=== PATIENT | male | born 1955 | race Caucasian/White ===

== ENCOUNTER 2016-09-03 06:16 | Inpatient (IN) | payer BC ==
[2016-08-08 14:13] VITALS: BMI 37.0
--- NOTE | 2016-08-08 14:46 | PAT Medication Instructions ---
Service Date Aug 08, 2016. Current Home Medication List Amlodipine (Norvasc), 2.5 MG PO QAM Ascorbic Acid (Vitamin C), 500 MG PO QAM Atorvastatin (Lipitor), 20 MG PO QAM B-Complex Vitamins (Vitamin B Complex), 1 TAB PO QAM Levothyroxine Sodium (Synthroid), 175 MCG PO QAM Losartan Potassium & Hydrochlo (Losartan Potassium/Hydroc), 1 TAB PO QAM Omeprazole (Prilosec), 20 MG PO QAM Medication Instructions For Your Scheduled Surgery - Hold the following medications the morning of surgery: Losartan Potassium & Hydrochlo (Losartan Potassium/Hydroc), 1 TAB PO QAM B-Complex Vitamins (Vitamin B Complex), 1 TAB PO QAM Ascorbic Acid (Vitamin C), 500 MG PO QAM - Take the following medications the morning of surgery with a sip of water: Omeprazole (Prilosec), 20 MG PO QAM Levothyroxine Sodium (Synthroid), 175 MCG PO QAM Atorvastatin (Lipitor), 20 MG PO QAM Amlodipine (Norvasc), 2.5 MG PO QAM If you have any questions please call us at [phone] (Vivienne Velazco PA-C) or [phone] or [phone]
--- NOTE | 2016-08-08 15:39 | DIAGNOSTIC IMAGING REPORT ---
TWO VIEW CHEST CLINICAL HISTORY: Preoperative examination. FINDINGS: PA and lateral chest radiographs are compared to study dated 03/19/2013 and correlated with chest CT dated 12/27/2010. The patient is status post midline sternotomy. The heart is enlarged. The pulmonary vasculature is noncongested. There is chronic elevation of the left hemidiaphragm with left basilar atelectasis. The lungs are otherwise clear. No pleural effusion or pneumothorax is seen. The bony thorax appears intact. Mild degenerative changes noted throughout the thoracic spine. IMPRESSION: Chronic changes as above with no active disease in the chest. Electronically signed by: Rk Gil M.D. 08/08/2016 3:38 PM Dictated Date/Time: 08/08/2016 3:36 PM
[2016-08-08 16:07] LABS: BASO % 0.1 %; BASO ABS # 0.01 K/uL (0-0.2); COMPLETE YES; EOS % 3.2 %; HEMATOCRIT 47.6 % (42-52); IG% 0.4 %; LYMPH % 27.1 %; LYMPH ABS # 1.87 K/uL (1.2-3.4); MEAN CELL VOLUME 91.4 fL (80-100); MEAN CORPUSCULAR HEMOGLOBIN 31.9 pg (25-34); MEAN CORPUSCULAR HGB CONC 34.9 g/dl (32-36); MEAN PLATELET VOLUME 10.5 fL (7.4-10.4); MONO % 10.6 %; NEUT % 58.6 %; PLATELET COUNT 182 K/uL (130-400); RED BLOOD COUNT 5.21 M/uL (4.7-6.1); WHITE BLOOD COUNT 6.91 K/uL (4.8-10.8)
[2016-08-08 16:10] LABS: URINE APPEARANCE CLEAR (CLEAR); URINE BILIRUBIN NEG (NEG); URINE COLOR YELLOW; URINE NITRITE NEG (NEG); URINE SPECIFIC GRAVITY 1.021 (1.000-1.030); UROBILINOGEN NEG (NEG)
[2016-08-08 16:15] LABS: PARTIAL THROMBOPLASTIN RATIO 1.1; PROTHROMBIN TIME (PATIENT) 10.8 SECONDS (9.0-12.0)
[2016-08-08 16:21] LABS: MANUAL MICROSCOPIC REQUIRED? NO; REVIEW REQ? NO
[2016-08-08 16:33] LABS: BUN/CREATININE RATIO 12.6 (10-20); CALCIUM 9.2 mg/dl (8.5-10.1); CREATININE 1.1 mg/dl (0.60-1.40); POTASSIUM 4.2 mmol/L (3.5-5.1)
[2016-08-11 16:57] LABS: BUN/CREATININE RATIO 15.5 (10-20); CALCIUM 8.8 mg/dl (8.5-10.1); CREATININE 1.1 mg/dl (0.60-1.40); POTASSIUM 3.7 mmol/L (3.5-5.1)
--- NOTE | 2016-08-19 10:10 | HISTORY & PHYSICAL EXAMINATION ---
DATE OF ADMISSION: 09/03/2016 CHIEF COMPLAINT: Left knee pain. HISTORY OF PRESENT ILLNESS: This 61-year-old white male presents to the office with complaints of left knee pain that he has had for more than 6 months. The patient has tried activity modification, viscosupplementation, and physical therapy as well as oral anti-inflammatories without lasting relief. Left knee pain is worse with weightbearing and ambulation. It is affecting his ADLs. He elects to proceed with left total knee arthroplasty in hopes of alleviating his pain. No numbness or tingling. He denies any recent swelling. No night pain. No catching or locking. X-rays have been obtained. PAST MEDICAL HISTORY: Significant for hypertension, GERD, osteoarthritis, obesity, history of melanoma, history of thyroid cancer, elevated cholesterol, and basal cell skin cancer. PREVIOUS SURGERIES: Punch biopsies, endoscopy, Mohs' surgery, tonsillectomy, shoulder surgery, left leg vein stripping, thyroidectomy, melanoma, basal cell cancer excision, thyroidectomy, and a paralyzed diaphragm. ALLERGIES: NKDA. CURRENT MEDICATIONS: Flurbiprofen 1 tablet p.o. b.i.d., HCTZ/losartan 25 mg/100 mg p.o. daily, Lipitor 20 mg daily, Prilosec 20 mg daily, and Synthroid 150 mcg daily. FAMILY HISTORY: Significant for cancer, otherwise unremarkable. REVIEW OF SYSTEMS: Significant for above stated conditions, otherwise unremarkable. PHYSICAL EXAMINATION: GENERAL: Well-developed and well-nourished middle aged white male, in no acute distress. Sitting on a bed. Alert and oriented. SKIN: Warm and dry with good turgor. No rashes. No ecchymosis or erythema. No intraarticular effusion. HEENT: Normocephalic and atraumatic. Eyes: PERRLA. EOMI. Ears: TMs intact bilaterally with good light reflexes. No erythema or bulging. Nares: Patent bilaterally without turbinate enlargement. Oropharynx: Without erythema or exudate. No lesions noted. Uvula midline. Oral mucosa moist. Good dentition. HEART: RRR. No MGR. LUNGS: Clear to auscultation bilaterally. No crackles, rhonchi or wheezing. Good air movement. ABDOMEN: Bowel sounds present x4. Soft and nontender. No organomegaly. No masses. MUSCULOSKELETAL: Left knee has no effusion. Slightly valgus alignment. Full terminal extension. Flexion to around 110 degrees. Strength is 5/5 with good quad tone. No defect in the patellar tendon or quadriceps tendon. He has focal discomfort with palpation over the medial and lateral joint lines. Ambulatory with a minimally antalgic gait. NEUROLOGIC: Cranial nerves II through XII are intact. Gross sensation is intact across the lower extremities by soft touch. Peripheral pulses are 2+. DATA: Radiographic images previously obtained show end-stage DJD of the left knee. He has periarticular osteophytes, subchondral sclerosis, and joint space narrowing. IMPRESSION: Left knee end-stage degenerative joint disease. PLAN: Informed written consent was obtained to proceed with left total knee arthroplasty. Postoperative prescriptions for Percocet and Coumadin will be provided at discharge from the hospital. Anticipate discharge to home with 2 weeks of home health services and then outpatient PT. Prescription for a walker has been provided. Preoperative lab work, EKG, and chest x-ray have been ordered. Medical clearance has been requested from Dr. Eden.
[~2016-09-03] VITALS: Ht 170.2 cm; Wt 107.4 kg
[2016-09-03] VITALS (7 sets, daily range): BP systolic 115–141; BP diastolic 71–93; PULSE 65–83; TEMP 36.6–37.5; O2SAT 93–97; Ht 170.2 cm; Wt 107.4 kg
[~2016-09-03 06:16] MED LIST: AMLO2.5T PO; ASCO1CAP3 PO; ATOR-22 PO; B-COTAB18 PO; CEFAZOLIN 2000 MG/60 ML D5W 60 ML IV SCH; LACTATED RINGER'S 1000ML 1,000 ML IV SCH; LACTATED RINGER'S 1000ML 500 ML IV ONE; LEVO175T PO; LOSA100T26 PO; PRLSR20 PO; ROPIVACAINE 5MG/ML 30 ML 150 MG, BUPIVACAINE/EPINEPHR 0.5% MPF 30 ML, KETOROLAC TROMETH... INFIL SCH
--- NOTE | 2016-09-03 06:24 | History & Physical Bridge Note ---
H&P Re-Evaluation Bridge Note: I have examined the patient, reviewed the History & Physical and in the interval since the performance of the History & Physical I have noted the following changes of clinical significance: No changes noted
[2016-09-03] MEDS ORDERED: BUPIVACAINE 0.5 % 5 MG/1 ML PF 10ML VIAL ONE (07:18)
[2016-09-03] MEDS ORDERED: BUPIVACAINE 0.25% 30 ML VIAL ONE (07:19)
[2016-09-03] MEDS ORDERED: MIDAZOLAM HCL 1 MG/ML 2ML VIAL ONE ×3 (07:44→09:23)
[2016-09-03] MEDS ORDERED: MEPERIDINE HCL 25 MG/ML CARP IV PRN ×2 (07:45→11:15)
[2016-09-03] MEDS ORDERED: ONDANSETRON INJ 2 MG/ML 2 ML VIAL IV PRN ×3 (07:45→11:15)
[2016-09-03] MEDS ORDERED: LABETALOL HCL IV 5 MG/ML 20ML IV PRN ×2 (07:45→11:15)
[2016-09-03] MEDS ORDERED: EpHEDrine SULFATE INJ 50 MG/ML AMP IV PRN ×2 (07:45→11:15)
[2016-09-03] MEDS ORDERED: HYDROmorphone INJ 1 MG/ML SYR IV PRN ×2 (07:45→11:15)
[2016-09-03] MEDS ORDERED: ATROPINE SULFATE 0.1 MG/ML 5ML SYR IV PRN ×2 (07:45→11:15)
[2016-09-03] MEDS: TRANEXAMIC ACID INJ 1,000 MG in SODIUM CHLORIDE 0.9% 100ML 100 ML IV SCH ×2 (08:32→12:59)
[2016-09-03] MEDS ORDERED: POVIDONE-IODINE OP SOLN 30 ML BTL ONE (08:48)
[2016-09-03] MEDS ORDERED: ORTHO JOINT ANESTHETIC ONE (08:48)
[2016-09-03] MEDS ORDERED: FENTANYL CITRATE INJ 50 MCG/1 ML 2 ML VIAL ONE (09:39)
--- NOTE | 2016-09-03 10:40 | [facility] Post Operative Brief Note ---
Immediate Operative Summary Operative Date Sep 03, 2016. Pre-Operative Diagnosis Left Knee End-Stage Degenerative Joint Disease Post-Operative Diagnosis Left Knee End-Stage Degenerative Joint Disease Procedure(s) Performed Left Total Knee Arthroplasty, Cemented Surgeon Dr. Stinson [employer] Supervisor Surgeon(s) David Alvarez PA-C Estimated Blood Loss 25 ml Findings severe djd with valgus Fluids (cc crystalloids) 1800cc Specimens A.) Left Knee Bone and Tissue Fragments Drains none Anesthesia spinal/lma Complication(s) None Disposition Recovery Room / PACU
[2016-09-03] MEDS ORDERED: TAMSULOSIN HCL 0.4 MG CAP PO PRN (11:00)
[2016-09-03] MEDS ORDERED: DiphenhydrAMINE HCL 50 MG/ML VIAL IV PRN (11:00)
[2016-09-03] MEDS ORDERED: METOCLOPRAMIDE HCL INJ 5 MG/ML 2 ML VIAL IV PRN (11:00)
[2016-09-03] MEDS ORDERED: ACETAMINOPHEN IV 100 ML IV PRN (11:00)
[2016-09-03] MEDS ORDERED: MoRPHine SULFATE 4 MG/ML 1 ML CARP\\VIAL IV PRN (11:00)
[2016-09-03] MEDS ORDERED: ACETAMINOPHEN 325 MG TAB PO PRN (11:00)
[2016-09-03] MEDS ORDERED: MAGNESIUM HYDROXIDE SUSP 30 ML UDC PO PRN (11:00)
[2016-09-03] MEDS ORDERED: ALUMINUM/MAGNESIUM/SIMETH (MAALOX MAX) 30 ML UDC PO PRN (11:00)
[2016-09-03] MEDS ORDERED: BISACODYL 10 MG SUPP PR PRN (11:00)
[2016-09-03] MEDS ORDERED: OXYCODONE HCL IR 5 MG TAB (IMMEDIATE RELEASE) PO PRN (11:00)
--- NOTE | 2016-09-03 11:00 | OPERATIVE REPORT ---
DATE OF OPERATION: 09/03/2016 PREOPERATIVE DIAGNOSIS: Severe osteoarthritis with valgus deformity, left knee. POSTOPERATIVE DIAGNOSIS: Same. OPERATION PERFORMED: Cemented left total knee replacement. SURGEON: Dr. Stinson. TELEVISION NEWS PRODUCER: Jhonathan Alvarez PA-C. No resident or fellow available. PERIOPERATIVE SITUATION: Medically cleared male with intractable valgus deformity pain, has failed conservative management and wants to proceed with total knee replacement. OPERATION AND FINDINGS: OPERATION: The patient appropriately identified, site verified, consent verified, 2 grams of Ancef confirmed as being given and 1 gram of TXA confirmed as being given. The left lower extremity was prepped and draped in usual fashion. Tourniquet was inflated to 300 mmHg after exsanguination of limb with a rubber Esmarch bandage for a total of about 65 minutes. Midline approach was utilized. Soft tissue releases performed. He had severe deformity, this was all corrected. A synovectomy completed, osteophytes resected. Distal femur entered with a drill bit. Cruciates resected. Femur resected 12 then adjusted to 14 later on. The tibia resected 2 and then adjusted to 4 later on. The extension gap was then excellent. The alignment was excellent. The femur was sized between a 5 and 4, was measured 5 cut 4. There was no notching. The flexion gap was slightly tight laterally. The capsular release performed and it was excellent. The anterior and posterior condylar and chamfer cuts then made and the box cut made and the size 4 femur fit well. The tibia was broached and reamed to a size 4 and a 12.5 insert gave excellent mid range stability and did not interfere with flexion that was utilized. The area was then irrigated with Betadine Pulsavac and then injected with Orthomix. The patella was then sized to a 41, appropriate resection made leaving 14-15 mm of the patella so seating hole was made and the trial tracked well. All trial elements were then removed. The wound irrigated with Betadine Pulsavac, final Orthomix injected. Permanent implants then cemented into position. After 12 minutes, the tourniquet deflated. After 14 minutes the knee flexed. All remaining minor cement removal occurred. The wound irrigated with betadine Pulsavac and permanent liner seated. The knee reduced and closed with #1 Ethibond, #1 Vicryl, 2-0 Vicryl and stainless steel clips. Appropriate dressing applied. The patient transferred to recovery room in satisfactory condition having tolerated the procedure well. Estimated blood loss was 25 mL. Crystalloid 1800 mL. DVT prophylaxis with Coumadin. SUMMARY OF IMPLANTS: Size 4 posterior cruciate substituting femur, size 4 rotating platform tray, oval domed 3 pegged patella size 41, tibial insert posterior cruciate substituting size 4 12.5. I attest to the content of the Intraoperative Record and any orders documented therein. Any exceptio ns are noted below.
[2016-09-03] MEDS ORDERED: PROPOFOL IV EMULSION 10 MG/ML 20 ML VIAL IV ONE (11:05)
[2016-09-03] MEDS ORDERED: LIDOCAINE HCL 2% 2 ML VIAL (20MG/ML) ONE (11:05)
[2016-09-03] MEDS: FENTANYL CITRATE INJ 50 MCG/1 ML 2 ML VIAL IV PRN ×4 (11:05→11:45)
[2016-09-03] MEDS ORDERED: ONDANSETRON INJ 2 MG/ML 2 ML VIAL ONE (11:06)
[2016-09-03] MEDS ORDERED: DEXAMETHASONE SOD INJ 4 MG/ML VIAL ONE (11:06)
--- NOTE | 2016-09-03 11:10 | OPERATIVE REPORT ---
DATE OF OPERATION: 09/03/2016 PREOPERATIVE DIAGNOSIS: Left knee end-stage degenerative joint disease. POSTOPERATIVE DIAGNOSIS: Left knee same. PROCEDURE: Left knee total knee arthroplasty using DePuy implants. SURGEON: Dr. Stinson. PROMOTION PRODUCER: Jhonathan Alvarez PA-C. HISTORY OF PRESENT ILLNESS: This 61-year-old white male presented to the office with complaints of left knee pain. He had tried conservative care measures including cortisone injections, viscosupplementation, oral pain medication, and activity modification without lasting relief. He elected to proceed with surgical intervention after being educated about potential risks and outcomes. Preoperative x-rays were obtained. OPERATION: The patient was administered spinal anesthetic and then taken to the operating room where he was given general anesthetic. He was prepped and draped in the usual sterile fashion. Please see Dr. Stinson's operative report for specifics of the procedure. I was present for the entire case from initial patient positioning through final wound closure. Assistance was provided in tissue retraction, hemostasis, trial implant placement, final implant placement, and final wound closure. The patient was taken to the recovery room in satisfactory condition. I attest to the content of the Intraoperative Record and any orders documented therein. Any exceptio ns are noted below.
[2016-09-03] MEDS ORDERED: FENTANYL CITRATE INJ 50 MCG/1 ML 2 ML VIAL IV PRN (11:15)
--- NOTE | 2016-09-03 11:32 | DIAGNOSTIC IMAGING REPORT ---
LEFT KNEE 1 OR 2 VIEWS ROUTINE CLINICAL HISTORY: Postop examination COMPARISON: None. DISCUSSION: There are postsurgical changes of a total left knee arthroplasty. The femoral and tibial components appear well seated. Overlying skin thanh are evident. There is air within soft tissues consistent with recent surgery. IMPRESSION: Postsurgical changes of a total left knee arthroplasty Electronically signed by: Jimmie Kelly M.D. 09/03/2016 11:31 AM Dictated Date/Time: 09/03/2016 11:30 AM
--- NOTE | 2016-09-03 11:59 | Anesthesiology Progress Note ---
Anesthesia Post Op Note Date & Time Sep 03, 2016 at 11:58 Vital Signs Pain Intensity: 1 Vital Signs Past 12 Hours Date Time Temp Pulse Resp B/P Pulse Ox O2 Delivery O2 Flow Rate FiO2 09/03/16 11:55 36.5 75 18 120/82 96 Nasal Cannula 3 09/03/16 11:40 36.5 74 18 135/89 96 Nasal Cannula 3 09/03/16 11:30 36.5 69 16 128/85 99 Nasal Cannula 3 09/03/16 11:20 72 16 141/78 99 Nasal Cannula 3 09/03/16 11:10 73 16 147/95 99 Nasal Cannula 3 09/03/16 11:00 78 16 144/90 96 Nasal Cannula 3 09/03/16 10:50 36 92 16 146/96 100 Nasal Cannula 3 09/03/16 06:47 37.2 69 18 141/93 Room Air Notes Mental Status: alert / awake / arousable, participated in evaluation Pt Amnestic to Procedure: Yes Nausea / Vomiting: adequately controlled Pain: adequately controlled Airway Patency, RR, SpO2: stable & adequate BP & HR: stable & adequate Hydration State: stable & adequate Neuraxial Anesthesia: was administered, sensory block is resolving Anesthetic Complications: no major complications apparent
[2016-09-03] MEDS ORDERED: MIDAZOLAM HCL 1 MG/ML 2ML VIAL IV ONE (13:03)
[2016-09-03] MEDS ORDERED: D5W AND 1/2NSS + 20MEQ KCL 1,000 ML IV SCH (14:00)
[2016-09-03] MEDS: FERROUS GLUCONATE 324 MG TAB PO SCH ×2 (14:28→18:11)
--- NOTE | 2016-09-03 14:32 | PROGRESS NOTE ---
DATE: 09/03/2016 HISTORY OF PRESENT ILLNESS: Postop check status post left total knee replacement. At this point in time the patient is without any headache, nausea, vomiting, chills, chest pain, shortness of breath, fever. He notes that his pain is well managed. He can do a straight leg raise. His wiggle his toes. PHYSICAL EXAMINATION: Vital signs are stable. He is afebrile. Wound dressing clean, dry and intact. X-RAYS: AP and lateral of his knee reveals well fixed, well aligned knee replacement. ASSESSMENT AND PLAN: Doing well. Once he eats, we will have him mobilized and get to a chair and walk today. Have vp digital marketing social media and crm see today for discharge tomorrow. Coumadin this evening. DELPHINE
[2016-09-03] MEDS ORDERED: WARFARIN SOD 5 MG TAB PO SCH (16:00)
[2016-09-03] MEDS ORDERED: OXYC-57 PO (16:58)
[2016-09-03] MEDS ORDERED: WARF2TAB PO (16:58)
[2016-09-03] MEDS ORDERED: TRANEXAMIC ACID INJ 1,000 MG in SODIUM CHLORIDE 0.9% 100ML 100 ML IV SCH (17:00)
[2016-09-03] MEDS: CEFAZOLIN IV 2,000 MG in DEXTROSE 5% 50ML 50 ML IV SCH (17:28)
[2016-09-03] MEDS: KETOROLAC TROMETHAMINE 30 MG/ML VIAL IV. SCH ×2 (18:12→23:31)
[2016-09-03] MEDS: DOCUSATE SODIUM 100 MG CAP PO SCH (21:23)
[2016-09-04] MEDS: CEFAZOLIN IV 2,000 MG in DEXTROSE 5% 50ML 50 ML IV SCH (00:59)
[2016-09-04 03:52] VITALS: BP 119/75; PULSE 88; TEMP 37.5; O2SAT 94
[2016-09-04] MEDS: KETOROLAC TROMETHAMINE 30 MG/ML VIAL IV. SCH ×2 (05:40→12:26)
[2016-09-04] MEDS ORDERED: LEVOTHYROXINE 175 MCG TAB PO SCH (06:00)
[2016-09-04] MEDS ORDERED: CHLORPROMAZINE HCL 10 MG TAB PO PRN (07:00)
[2016-09-04 07:21] LABS: HEMATOCRIT 35.4 % (42-52); MEAN CELL VOLUME 88.7 fL (80-100); MEAN CORPUSCULAR HEMOGLOBIN 32.1 pg (25-34); MEAN CORPUSCULAR HGB CONC 36.2 g/dl (32-36); MEAN PLATELET VOLUME 10.3 fL (7.4-10.4); PLATELET COUNT 184 K/uL (130-400); RED BLOOD COUNT 3.99 M/uL (4.7-6.1); WHITE BLOOD COUNT 11.61 K/uL (4.8-10.8)
--- NOTE | 2016-09-04 07:22 | PROGRESS NOTE ---
DATE: 09/04/2016 Postop check status post total knee replacement. Is doing well, has no major issues. Notes some minor hiccups. Denies chest pain, shortness of breath, fever, chills, nausea, vomiting. Voiding well. Vital signs are stable. He is afebrile. The a.m. lab work is pending. The femoral sciatic nerve is excellent. Calf nontender. Wound dressing clean, dry and intact. ASSESSMENT: Overall, doing well. Continue with care pathway. P.rGavinnGavin Plata for hiccups. Will follow up in the office. Home health to be arranged. Discharge today.
--- NOTE | 2016-09-04 07:24 | DISCHARGE SUMMARY ---
CHIEF COMPLAINT: Left knee pain. HISTORY OF PRESENT ILLNESS: 61-year-old male admitted for elective left total knee replacement. Hospital course has been uneventful. Had some minor hiccups; will try some Thorazine. PAST MEDICAL HISTORY: Remarkable for hypertension, GERD, osteoarthritis, obesity, history of melanoma, history of thyroid cancer, elevated cholesterol, basal cell skin cancer. PAST SURGICAL HISTORY: Include punch biopsies, endoscopies, Mohs surgery, tonsillectomy, shoulder surgery, left leg vein stripping, thyroidectomy, melanoma basal cell cancer, thyroidectomy and paralyzed diaphragm. ALLERGIES: None. CURRENT MEDICATIONS: NSAID, hydrochlorothiazide, losartan, Lipitor, Prilosec, Synthroid. He was discontinue the NSAID or flurbiprofen and will add p.r.n. pain medication and Coumadin to keep INR 1.8-2.2. FAMILY HISTORY: Cancer. REVIEW OF SYSTEMS: Noncontributory. ASSESSMENT: Hospital course has been uneventful at this point in time. He is moving well. He is voiding and eating well. Will potentially discharge after PT, OT today. Follow up in 2 weeks for staple removal. Home health.
[2016-09-04] MEDS ORDERED: DEXAMETHASONE INJ 10 MG in SYRINGE 0 ML IV SCH (07:30)
[2016-09-04 07:39] LABS: INR 1.1 (0.9-1.1); PROTHROMBIN TIME (PATIENT) 11.9 SECONDS (9.0-12.0)
[2016-09-04 07:57] LABS: BUN/CREATININE RATIO 18.5 (10-20); CALCIUM 8.5 mg/dl (8.5-10.1); CREATININE 1.2 mg/dl (0.60-1.40); POTASSIUM 3.9 mmol/L (3.5-5.1)
[2016-09-04 07:58] VITALS: BP 133/78; PULSE 87; TEMP 37.6; O2SAT 92
--- NOTE | 2016-09-04 08:34 | Anesthesiology Progress Note ---
Anesthesia Post Op Note Date & Time Sep 04, 2016 at 08:33 Vital Signs Pain Intensity: 0.0 Vital Signs Past 12 Hours Date Time Temp Pulse Resp B/P Pulse Ox O2 Delivery O2 Flow Rate FiO2 09/04/16 07:58 37.6 87 17 133/78 92 Room Air 09/04/16 07:05 Room Air 09/04/16 03:52 37.5 88 18 119/75 94 Room Air 09/03/16 23:45 37.5 83 18 115/71 93 Room Air 09/03/16 23:34 Room Air Notes Mental Status: alert / awake / arousable, participated in evaluation Pt Amnestic to Procedure: Yes Nausea / Vomiting: adequately controlled Pain: adequately controlled Airway Patency, RR, SpO2: stable & adequate BP & HR: stable & adequate Hydration State: stable & adequate Neuraxial Anesthesia: sensory block resolved Anesthetic Complications: no major complications apparent
--- NOTE | 2016-09-04 08:45 | Discharge Instructions ---
Discharge Instructions Date of Service Sep 03, 2016. Admission Reason for Admission: Left Knee Osteoarthritis Discharge Discharge Diagnosis / Problem: left knee s/p total knee replacement Discharge Goals Goal(s): Decrease discomfort, Improve function, Increase independence Activity Recommendations Activity Limitations: as noted below Lifting Limitations: gradually increase as tolerated Exercise/Sports Limitations: until after follow-up appointment Shower/Bathe: keep incision dry Driving or Machine Use: No driving until cleared by Dr. Stinson Weightbearing Status: Left weightbearing (as tolerated) . Instructions / Follow-Up Instructions / Follow-Up New Medicine: * You will likely be taking one or more of these medications: 1. Percocet - Take, as directed, when you need it, every four to six hours to control your pain. 2. Coumadin - Thins your blood to lessen the chance of forming a blood clot. The dose of this is different for each person and is based on your blood tests that are done twice a week. * The most common side effects of pain medicine and iron are nausea and constipation. If nausea or constipation is too much of a problem or if you have any questions about your new medicines or doses, call [facility] at . We will try to help you manage these issues. VERY IMPORTANT TO READ AND REVIEW" Blood Clots and Blood Thinning Medicine: * You are given Coumadin during the immediate post-operative period to lessen the risk of blood clots forming in your legs and/or lungs. Coumadin is usually given for six weeks after surgery. * The prescription is for 2 mg tablets. At discharge, you should understand your dose and take it all at the same time every day, preferably after dinner. * You need to get your blood checked 1 - 2 times per week for six weeks or as directed. * If your dose needs to change, we will call you. Do not take your medication on the day of the blood test until we call you. Pain: * The immediate post-operative period after knee replacement surgery is often quite painful. * You are given a prescription for pain medicine. You should take it, as directed, when you need it, especially before physical therapy and before going to bed. Pain that interferes with sleep is very common and can last several months. * You will likely need pain medicine for the first four to six weeks. It will not stop all of the pain. The pain will lessen and as you feel better, you may change to milder pain medicine such as Tylenol. * The most common side effects of pain medicine are nausea and constipation, so don't take more than you need. Physical Therapy: * You will have physical therapy two or three times each week for four to six weeks after your surgery in order to regain your knee range of motion and to retrain your knee to work properly. * It is just as important to make sure you are getting your knee perfectly straight as it is to regain your knee bend. * Taking a pain pill an hour before therapy can help you have a more productive and comfortable therapy session if needed. Home Exercise: * You were shown a series of exercises (heel props, heel slides, etc.) in the hospital. Do these exercises three to four times each day including the exercises you were shown in physical therapy. Walking: * Get up and walk several times each day. For the first four weeks, try not to stand or walk for more than one hour at a time. If you do stand or walk for more than one hour, you will not hurt anything, but your knee and leg will likely swell. * As you feel comfortable, you may change from the walker or crutches to a cane and then to independent walking. SELF CARE INSTRUCTIONS AFTER TOTAL KNEE REPLACEMENT A. You may need to continue a physical therapy program after discharge from the hospital. There are several options available to you. Your doctor will assist you in selecting the best one for you. 1. An out-patient facility 2 to 3 times a week for therapy or home therapy. 2. Continue working on all exercises taught to you in the hospital. Your goals should be to increase bending of your knee to 90 degrees and beyond and to fully straighten your knee. B. You may progress at your own pace from walking with a walker or crutches to a cane; then to no assistive devices. C. Make walking a part of your daily routine. Be up as much as comfortable with rest periods throughout the day. Rest with leg elevation is very important. Use the ice wrap frequently for the first 3-4 weeks. D. There are no restrictions on activities. You may ride in a car, shop, participate in solar development engineer and all social activities. E. Wear the long elastic stockings (HARRISON hose) 20 hours a day for six weeks after surgery. They can be removed several times a day for laundering and for a shower. F. Do not place a pillow behind your knee when resting. A pillow at your ankle is okay. VERY IMPORTANT TO READ AND REVIEW A. Take Coumadin, Aspirin or Lovenox (blood thinning medications) as directed by your doctor. If on Coumadin, have a pro-time (blood test) drawn according to your doctor's instructions. This will tell the doctor how well the Coumadin is thinning your blood. 1. YOU WILL BE GIVEN AN ORDER AT DISCHARGE FOR PT/INR (BLOOD WORK). PLEASE HAVE THIS DONE INSTRUCTED. PLEASE CALL OUR OFFICE AFTER YOUR BLOODWORK IS COMPLETE SO WE CAN TRACK YOUR RESULTS. IF YOU ARE GOING TO OUTPATIENT PHYSICAL THERAPY, YOU WILL NEED TO GO TO OUTPATIENT TESTING TO HAVE IT DRAWN. B. There are a few signs you need to watch for after you are home. Call [facility] if you notice any of the followin. Increased severe knee pain. Some pain is expected especially when you exercise. 2. Increased swelling in your leg or knee; pain or swelling of the calf muscle in either lower leg. 3. Any fluid drainage from the incision. 4. Shortness of breath or chest pain. C. Please call [facility] at if you have any concerns or questions about your operation or recovery. The doctor or his nurse will return your call promptly. D. You must take antibiotics before dental work, bladder, bowel or other surgery. Call the office to obtain a prescription at least 2 days prior to your appointment. * CALL IF INCREASED PAIN, REDNESS, DRAINAGE OR FEVER GREATER THAT 101. * Sutures should be removed 12-14 days after surgery unless you are on chronic steriods, then it will be 14-18 days after surgery. Call your doctor if: * Temperature above 101 degrees F. * Pain not relieved by pain medicine ordered. * Increased drainage or redness from incision. * Notify your doctor with any questions or concerns. Current Hospital Diet Patient's current hospital diet: Kosher Diet Discharge Diet Recommended Diet: Regular Diet Procedures Procedures Performed: Left Total Knee Arthroplasty, Cemented Pending Studies Studies pending at discharge: no Medical Emergencies . Who to Call and When: Medical Emergencies: If at any time you feel your situation is an emergency, please call 911 immediately. . Non-Emergent Contact Non-Emergency issues call your: Primary Care Provider, Surgeon Call Non-Emergent contact if: temperature is above 101, wound has increased drainage, wound has increased redness, wound has increased pain . "Provider Documentation" section prepared by Jhonathan Alvarez PA-C. VTE Core Measure Inpt VTE Proph given/why not?: Warfarin (Coumadin), T.E.D. Stockings, SCD's [place] Drug Monitoring Program Search Results: no issues identified
[2016-09-04] MEDS ORDERED: PANTOprazole SOD 40 MG TAB PO SCH (09:00)
[2016-09-04] MEDS ORDERED: MULTIVITAMIN TAB PO SCH (09:00)
[2016-09-04] MEDS ORDERED: ATORVASTATIN 20 MG TAB PO SCH (09:00)
[2016-09-04] MEDS ORDERED: LOSARTAN/HCTZ 50-12.5 EA TAB PO SCH (09:00)
[2016-09-04] MEDS ORDERED: AMLODIPINE BESYLATE 5 MG TAB PO SCH (09:00)
[2016-09-04] MEDS: FERROUS GLUCONATE 324 MG TAB PO SCH ×2 (09:01→12:43)
[2016-09-04] MEDS: DOCUSATE SODIUM 100 MG CAP PO SCH (09:01)
[2016-09-04 10:12] VITALS: BP 133/78; PULSE 87; O2SAT 92
[2016-09-04 11:19] VITALS: TEMP 37.7
[2016-09-04] MEDS ORDERED: WARFARIN SOD 5 MG TAB PO ONE (16:00)
== END 2016-09-04 12:49 | disposition home health service (06) | DRG 470 ==
LOC: ENRESERVTM → ENRESERVDT → C.ACU 06:16 → UNDOADMIN 06:30 → C.MSN 06:30 → C.MSW 06:30
PROVIDERS: ADMIT Physical Medicine & Rehabilitation Sports Medicine; ATTEND Physical Medicine & Rehabilitation Sports Medicine
PROC: 0SRD0J9 Replacement of Left Knee Joint with Synthetic Substitute, Cemented, Open Approach (ICD-10-PCS; principal; 2016-09-03 09:00)
DX: M17.12 Unilateral primary osteoarthritis, left knee (principal); K21.9 Gastro-esophageal reflux disease without esophagitis; E66.9 Obesity, unspecified; E78.00 Pure hypercholesterolemia, unspecified; I10 Essential (primary) hypertension; M21.062 Valgus deformity, not elsewhere classified, left knee; M54.2 Cervicalgia; R06.6 Hiccough; J98.6 Disorders of diaphragm; Z68.37 Body mass index [BMI] 37.0-37.9, adult; Z85.850 Personal history of malignant neoplasm of thyroid; Z79.1 Long term (current) use of non-steroidal anti-inflammatories (NSAID); Z79.899 Other long term (current) drug therapy

== ENCOUNTER → 2016-09-08 | Outpatient (CLI) | payer BC ==
[~2016-09-08] MED LIST changes: -CEFAZOLIN 2000 MG/60 ML D5W 60 ML IV SCH; -LACTATED RINGER'S 1000ML 1,000 ML IV SCH; -LACTATED RINGER'S 1000ML 500 ML IV ONE; -LOSA100T26 PO; +LOSA100T33 PO; +OXYC-57 PO; -ROPIVACAINE 5MG/ML 30 ML 150 MG, BUPIVACAINE/EPINEPHR 0.5% MPF 30 ML, KETOROLAC TROMETH... INFIL SCH; +WARF2TAB PO
[2016-09-08 11:01] LABS: INR 1.2 (0.9-1.1); PROTHROMBIN TIME (PATIENT) 12.7 SECONDS (9.0-12.0)
== END | disposition home or self-care (01) ==
LOC: C.LABSPEC 10:29
PROVIDERS: ATTEND Physical Medicine & Rehabilitation Sports Medicine
DX: Z01.89 Encounter for other specified special examinations (principal)

== ENCOUNTER → 2016-09-09 | Outpatient (CLI) | payer BC ==
--- NOTE | 2016-09-09 10:07 | DIAGNOSTIC IMAGING REPORT ---
CHEST 2 VIEWS ROUTINE CLINICAL HISTORY: SPASM OF DIAPHRAGM , VOMITING. COMPARISON STUDY: 08/08/2016 FINDINGS: There are postsurgical changes of a midline sternotomy. The cardiac and mediastinal contours remain stable. There is persistent elevation of the left hemidiaphragm. There is stable left basilar atelectatic changes.[ IMPRESSION: Stable elevation left hemidiaphragm with minor left basilar atelectatic change. No active disease in the chest. Electronically signed by: Jimmie Kelly M.D. 09/09/2016 10:06 AM Dictated Date/Time: 09/09/2016 10:05 AM
== END | disposition home or self-care (01) ==
LOC: C.RDSM 09:20
PROVIDERS: ATTEND Physical Medicine & Rehabilitation Sports Medicine
DX: R06.6 Hiccough (principal)

== ENCOUNTER → 2016-09-12 | Outpatient (CLI) | payer BC ==
[2016-09-12 09:57] LABS: INR 3.2 (0.9-1.1); PROTHROMBIN TIME (PATIENT) 35.4 SECONDS (9.0-12.0)
== END | disposition home or self-care (01) ==
LOC: C.LABSPEC 09:36
PROVIDERS: ATTEND Physical Medicine & Rehabilitation Sports Medicine
DX: Z96.652 Presence of left artificial knee joint (principal)

== ENCOUNTER → 2016-09-16 | Outpatient (CLI) | payer BC ==
[2016-09-16 11:54] LABS: INR 2.6 (0.9-1.1); PROTHROMBIN TIME (PATIENT) 28.8 SECONDS (9.0-12.0)
== END | disposition home or self-care (01) ==
LOC: C.LABSPEC 11:17
PROVIDERS: ATTEND Physical Medicine & Rehabilitation Sports Medicine
DX: Z79.01 Long term (current) use of anticoagulants (principal)

== ENCOUNTER → 2016-10-27 | Outpatient (CLI) | payer BC | END | disposition home or self-care (01) | LOC: C.RDSM 12:58 | PROVIDERS: ATTEND Physical Medicine & Rehabilitation Sports Medicine | DX: Z96.652 Presence of left artificial knee joint (principal) ==